=== PATIENT | female | born 1930 ===

== ENCOUNTER 2022-02-15 21:33 | Inpatient (IN) | payer OTHER ==
[~2022-02-15] VITALS: Ht 162.6 cm; Wt 54.4 kg
[2022-02-15] MEDS ORDERED: ATORVASTATIN CA10 MG (21:40)
[2022-02-15] MEDS ORDERED: TOPROL XL25 M1 (21:40)
[2022-02-15] MEDS ORDERED: AMLODIPINE-OLM1 EACH (21:41)
[2022-02-15] MEDS ORDERED: HYDRODIURIL12.5 MG (21:41)
[2022-02-15] MEDS ORDERED: MICARDIS20 MG (21:41)
--- NOTE | 2022-02-15 21:42 | NUR ---
SE RECIBE PTE DE AMBULANCIA, ALERTA, DESORIENTADA EN TIEMPO Y LUGAR, ORIENTADA EN PERSONA, EN COMPANIA DE FAMILIAR (HIJA) QUIEN REFIERE TRAUMA EN CADERA RT POR CAIDA HOY EN LA MANANA EN YUN SILLA. PTE LLEGA DEL [facility] [place] IV #[address] EN [address]TE[address]ZO [address] Y AGUILLON CON FECHA DE 02/15/22 #16 CON EGRESO APROXIMADO DE 25ML. SE UBICA EN AREA DE OBSERVACION.
--- NOTE | 2022-02-15 22:46 | NUR ---
PTE EVALUADA POR EL DR CLARK QUIEN ORDENA EL [place]. SE ORIENTA SOBRE EL [place] ORDENADO A CUIDADORA, LO CUAL REFIERE ENTENDER. SE REALIZAN PRUEBAS DE LABORATORIO Y SE ADMINISTRA MEDICAMENTO GIULIANA ORDEN MEDICA Y SIGUIENDO MEDIDAS ASEPTICAS.
== END 2022-02-20 20:06 | disposition home or self-care (01) | DRG 481 ==
LOC: ER 21:33 → SEC-K 02-16 06:38 → SURH 02-16 06:38 → SURG 02-16 06:38 → SURH 02-16 16:59
PROVIDERS: ADMIT Orthopaedic Surgery; ATTEND Orthopaedic Surgery
PROC: 30233N1 Transfusion of Nonautologous Red Blood Cells into Peripheral Vein, Percutaneous Approach (ICD-10-PCS; 2022-02-16)
PROC: 0QS606Z Reposition Right Upper Femur with Intramedullary Internal Fixation Device, Open Approach (ICD-10-PCS; principal; 2022-02-18 11:45)
DX: S72.141A Displaced intertrochanteric fracture of right femur, initial encounter for closed fracture (principal); F02.81 Dementia in other diseases classified elsewhere, unspecified severity, with behavioral disturbance; W07.XXXA Fall from chair, initial encounter; Y92.009 Unspecified place in unspecified non-institutional (private) residence as the place of occurrence of the external cause; G30.9 Alzheimer's disease, unspecified

== ENCOUNTER → 2022-11-18 | Outpatient (CLI) | payer OTHER ==
[~2022-11-18] MED LIST: AMLODIPINE-OLM1 EACH; ATORVASTATIN CA10 MG; HYDRODIURIL12.5 MG; MICARDIS20 MG; TOPROL XL25 M1
== END | disposition home or self-care (01) ==
LOC: RAD 10:08
PROVIDERS: ATTEND Orthopaedic Surgery
DX: M25.561 Pain in right knee (principal); M25.562 Pain in left knee; M25.551 Pain in right hip